=== PATIENT | female | born 1980 | race Caucasian/White ===

== ENCOUNTER 2022-09-15 18:48 | Emergency (ER) | payer MEDICAID ==
[~2022-09-15] VITALS: Ht 162.6 cm; Wt 81.0 kg
[2022-09-15 19:21] VITALS: BP 172/120
== END 2022-09-16 06:13 | disposition left against medical advice (07) ==
LOC: ER 18:48 → EDBD 18:48 → ER 09-16 06:13
DX: F10.129 Alcohol abuse with intoxication, unspecified (principal); Z53.21 Procedure and treatment not carried out due to patient leaving prior to being seen by health care provider; Y90.9 Presence of alcohol in blood, level not specified

== ENCOUNTER 2023-06-06 14:12 | Emergency (ER) | payer MEDICAID ==
[~2023-06-06] VITALS: Ht 162.6 cm; Wt 88.0 kg
[2023-06-06 14:27] VITALS: BP 150/113; PULSE 100; RESP 16; O2SAT 97
[2023-06-06] MEDS ORDERED: HYDROcodone-ACET 5/325MG TAB PO ONE (14:45)
[2023-06-06] MEDS ORDERED: IBUPROFEN 600 MG TAB PO ONE (14:45)
== END 2023-06-07 00:55 | disposition left against medical advice (07) ==
LOC: ER 14:12
DX: S80.02XA Contusion of left knee, initial encounter (principal); I10 Essential (primary) hypertension; J45.909 Unspecified asthma, uncomplicated; F17.210 Nicotine dependence, cigarettes, uncomplicated; W18.39XA Other fall on same level, initial encounter; Y93.89 Activity, other specified; Y92.89 Other specified places as the place of occurrence of the external cause; Y99.8 Other external cause status